=== PATIENT | male | born 1945 | race Caucasian/White ===

== ENCOUNTER → 2019-08-05 08:32 | Outpatient (BNVA) | payer MEDICARE, OTHER, SELFPAY | PROVIDERS: Family Provider Family Medicine; PCP Family Medicine; Visit Provider Urology | DX: N52.9 Male erectile dysfunction, unspecified (principal); Z12.5 Encounter for screening for malignant neoplasm of prostate | CPT/HCPCS: 81001 ==

== ENCOUNTER → 2020-08-03 08:22 | Outpatient (BNVA) | payer MEDICARE, OTHER, SELFPAY | PROVIDERS: Family Provider Family Medicine; PCP Family Medicine; Visit Provider Urology | DX: R97.20 Elevated prostate specific antigen [PSA] (principal); N40.0 Benign prostatic hyperplasia without lower urinary tract symptoms; N52.9 Male erectile dysfunction, unspecified; Z12.5 Encounter for screening for malignant neoplasm of prostate; K40.90 Unilateral inguinal hernia, without obstruction or gangrene, not specified as recurrent | CPT/HCPCS: 81003; 84153 ==

== ENCOUNTER → 2021-04-26 11:25 | Outpatient (BNVA) | payer MEDICARE, OTHER, SELFPAY | PROVIDERS: Family Provider Family Medicine; PCP Family Medicine; Visit Provider Nurse Practitioner Family | DX: N40.1 Benign prostatic hyperplasia with lower urinary tract symptoms (principal); R31.9 Hematuria, unspecified | CPT/HCPCS: 81003; 87086; 88112 ==

== ENCOUNTER 2021-05-23 16:22 | Emergency (ER) | payer MEDICARE, OTHER, SELFPAY ==
[2021-05-23 16:37] VITALS: BP 178/83; PULSE 78; RESP 18; TEMP 36.6; O2SAT 98; BMI 24.7
--- NOTE | 2021-05-23 18:50 | W.ED.GENADLT ---
HPI - General Adult General: Chief complaint: General Medical Stated complaint: HTN Time Seen by Provider: 05/23/21 18:47 History of Present Illness: HPI narrative: Patient is a 75-year-old male comes to the ED with elevated blood pressure. Patient says for the past several days his blood pressure continues to go up. He said at his doctor's office today his blood pressure was 160/90. He denies any current symptoms such as chest pain, headache, diaphoresis, nausea/vomiting, neuro symptoms. He currently takes amlodipine and doxazosin for his blood pressure. He was on hydrochlorothiazide, but his manager [facility] took him off medication since patient did not like taking it and they are considering putting him on a different medication besides hydrochlorothiazide. He was told to contact his manager hotel about blood pressure medications if his blood pressure starts elevating. Associated symptoms: Deny chest pain, dyspnea, headache(s), nausea, rash, palpitations or vomiting Review of Systems Const: Denies: fever(s), chills or fatigue Eyes: Denies: change in vision or eye discomfort ENMT: Denies: throat pain, odynophagia, nasal discharge or nasal congestion Card: Denies: chest pain, palpitations, edema, swelling of feet/ankles, dyspnea on exertion or orthopnea Resp: Denies: dyspnea, productive cough or non-productive cough GI: Denies: abdominal pain, nausea, vomiting, diarrhea, constipation or hematochezia : Denies: flank pain, difficulty urinating, dysuria or hematuria Musc: Denies: neck pain, back pain or extremity swelling Skin/Breast: Denies: rash or new lesions Neuro: Denies: headache(s), numbness in extremities or weakness in extremities Psych: Reports: anxiety (Patient said he is very anxious about his blood pressure) PFS ED PFSH: Medical History BPH loc w urin obs/LUTS Gross hematuria H/O mumps orchitis Left inguinal hernia Male erectile dysfunction Penile pain Prostate cancer screening Surgical History H/O cervical spine surgery History of back surgery S/P hernia surgery S/P surgical removal of pilonidal cyst S/P tonsillectomy Family History Mother , 64 Cancer Father , 51 CAD (coronary artery disease) Social History Alcohol intake: never Marital status: Current occupational status: retired History of recent travel: No Physical Exam Const: COMMON NORMALS: no acute distress, patient oriented x3, healthy appearing and alert GENERAL APPEARANCE: cooperative and anxious (Patient appears very anxious about his blood pressure) HENMT: COMMON NORMALS: normocephalic HEAD & SCALP: normocephalic MOUTH: Normal oral and palatal mucosa present THROAT: posterior oropharynx normal and uvula midline Eye: COMMON NORMALS: Equal, round and reactive pupils present and conjunctivae normal CONJUNCTIVA: Yes conjunctivae normal PUPIL: Yes Equal, round and reactive pupils present Neck/C-Spine: COMMON NORMALS: supple GENERAL: Yes normal visual inspection Resp: COMMON NORMALS: normal respiratory effort, No retractions, No use of accessory muscles and clear to auscultation bilaterally AUSCULTATION: clear to auscultation bilaterally Cardio: COMMON NORMALS: regular rate, regular rhythm, S1 normal heart sound present, S2 normal heart sound present, No gallops present (Cardio), No clicks present (Cardio), No murmurs present (Cardio) and Peripheral pulses 2+ throughout RATE: regular rate RHYTHM: regular rhythm HEART SOUNDS: S1 normal heart sound present and S2 normal heart sound present PERIPHERAL PULSES: Peripheral pulses 2+ throughout GI: COMMON NORMALS: Normal to inspection, nondistended, normoactive bowel sounds present, Soft to palpation, non-tender and no masses PALPATION: Yes Soft to palpation : COMMON NORMALS: Yes no CVA tenderness BLADDER/KIDNEY EXAM: Yes no CVA tenderness Back/Pelvis: COMMON NORMALS: no CVA tenderness Extremity: COMMON NORMALS: normal to inspection Neuro: COMMON NORMALS: patient oriented x3 and moves all extremities SENSORIUM/ORIENTATION: Yes alert Skin: GENERAL SKIN EXAM: dry skin Course Vital Signs: Vital signs: Vital Signs Temperature 97.8 F 05/23/21 16:37 Pulse Rate 78 05/23/21 16:37 Respiratory Rate 18 05/23/21 16:37 Blood Pressure 184/77 05/23/21 19:03 Pulse Oximetry 98 05/23/21 16:37 MDM - General Adult MDM Narrative: Medical decision making narrative: Patient is a 75-year-old male comes to the ED with elevated blood pressures. He has no other symptoms and patient appears very concerned and worried about his elevated blood pressure. He currently takes amlodipine and doxazosin to help with blood pressure. Blood pressure 184/77 here in the ED. Rest of vitals are stable. Exam is benign. Patient was given a dose of clonidine while here in the ED and discharged home. He was told to contact Dr. Dos Santos his PCP tomorrow to discuss further blood pressure medication management. Return to ED precautions given. Patient understood and agree with plan. Discharge Plan Discharge Patient Disposition: Home Clinical Impression: Hypertension Qualifiers: Hypertension type: unspecified Qualified Code(s): I10 - Essential (primary) hypertension Condition: Stable Prescriptions: No Action clopidogrel [Plavix] 75 mg tablet 75 mg PO DAILY RF: 0 levothyroxine 150 mcg capsule 150 mcg PO DAILY RF: 0 amlodipine 10 mg tablet 10 mg PO DAILY RF: 0 doxazosin 8 mg tablet 8 mg PO DAILY RF: 0 pravastatin 20 mg tablet 20 mg PO DAILY RF: 0 finasteride 5 mg tablet 5 mg PO DAILY RF: 0 omega-3 fatty acids [Fish Oil Concentrate] 1,000 mg capsule 1,000 mg PO DAILY RF: 0 Centrum Silver 0.4-300-250 mg-mcg-mcg tablet 1 tab PO DAILY RF: 0 aspirin [Adult Low Dose Aspirin] 81 mg tablet,delayed release (DR/EC) 81 mg PO DAILY RF: 0 vitamin B complex [B Complex-Vitamin B12] Tablet 1 tab PO DAILY RF: 0 Discharge Orders: Discharge ED (Routine); Ordered 05/23/21 Ordered By: Yusuf Peacock Referrals: Zeeshan Dos Santos MD [Primary Care Provider] - Discharge Diet: Regular Discharge Activity: Increase activity as tolerated Patient Instructions: Hypertension (ED) Activity Restrictions/Additional Instructions: Follow-up with medical provider as directed. Follow-up with your PCP tomorrow to discuss hypertension medication management. Continue taking home medications as prescribed. Recheck your blood pressures before you go to bed tonight. If you are having any symptoms and your systolic blood pressures above 190 or diastolic above 110, you can take your hydrochlorothiazide and come back to the ED if you are having any symptoms or continue having elevated blood pressures. Return to the ER or your medical provider if condition worsens. Please read and understand discharge instructions. Thank you for choosing [facility] for your healthcare needs today. Please realize this is an emergency room and that we are providing you with a medical screening exam and this may not be complete and all inclusive of all the testing and or work up that you may need to determine your ailment or severity of your illness. It is very important that you follow up as instructed or that you return to the Emergency Department should you have concerns or if your condition changes or worsens in any way. 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
[2021-05-23 19:03] VITALS: BP 184/77
[2021-05-23] MEDS: cloNIDine 0.1 mg Tablet PO (19:03)
== END 2021-05-23 19:10 | disposition home or self-care (01) ==
PROVIDERS: Emergency Provider Physician Assistant; PCP Family Medicine
DX: I10 Essential (primary) hypertension (principal); Z79.82 Long term (current) use of aspirin; Z79.02 Long term (current) use of antithrombotics/antiplatelets
CPT/HCPCS: 81003; 99283

== ENCOUNTER 2021-06-21 10:33 | Outpatient (CLI) | payer MEDICARE, OTHER, SELFPAY ==
--- NOTE | 2021-06-21 10:49 | CT_ITS ---
WS: [id number] CT ABDOMEN PELVIS TECHNIQUE: Noncontrast CT of the abdomen and contrast-enhanced CT of the abdomen and pelvis with jamie nal and sagittal reformatted images. CLINICAL INFORMATION: GROSS HEMATURIA COMPARISON: Outside noncontrast CT abdomen and pelvis [facility] May 09 1 DLP: 1016.[address] scans at [facility] use at least one of these dose optimization techniques: automated e xposure control; mA and/or kV adjustment per patient size (includes targeted exams where dose is matc hed to clinical indication); or iterative reconstruction. FINDINGS: Lung bases are well aerated. Slight bibasilar atelectasis. Mild diffuse fatty infiltration of the jerald er. Normal portal vein and splenic vein. A few incidental hepatic cysts.Tiny noncalcified nodule in t he right middle lobe measuring 2 mm. Splenic granulomas. Small esophageal hiatal hernia. Adrenal glands are normal. Normal right renal par enchymal enhancement. No hydronephrosis in right kidney. Heterogeneous enhancing intraparenchymal mas s in the upper pole left kidney most consistent with neoplasm measuring approximately 3.9 x 5.3 cm. A ssociated central low attenuation change or necrosis. Obstruction of some of the mid and upper pole c alyces. Involvement of the left renal pelvis. Left adrenal gland appears normal. Left renal vein appe ars patent. Additional enhancing soft tissue involving the left renal pelvis extending into the proxi mal ureter suspicious for tumor invasion. Less likely this represents thrombus. Soft tissue filling t he renal pelvis results in partial renal obstruction with narrowing at the UPJ. Evidence of emptying on the delayed imaging. Right ureter empties normally. Enlarged left periaortic lymph nodes suspicious for metastatic disease measuring up to 11 mm. Celiac and SMA are patent. Mild induration in the surrounding perinephric fat suspicious for lymphovascular invasion. No pelvic or inguinal lymphadenopathy. Normal caliber abdominal aorta. Aortic calcification. Enlarged calcified prostate with heterogeneous enhancement measuring 5.1 CM. Correlation PSA. Prostate calcification. Evidence of mild bladder outle t obstruction. CT/CT abdomen pelvis wo/w [id number] IMPRESSION: 1. Heterogeneous enhancing mass upper pole left kidney with central necrosis m ost compatible with renal neoplasm. Associated obstruction of the upper pole ca lyces. Suspected neoplasm measures 3.9 x 5.3 CM. 2. Associated enhancing soft tissue extending into the renal pelvis and left U PJ with narrowing of the left ureter compatible with tumor invasion. Less likel y this represents thrombus. 3. Induration in the surrounding perinephritic fat. Left Adrenal gland is norm al. Left renal vein is patent. 4. Enlarged left periaortic lymph nodes suspicious for metastatic disease. 5. Partial obstruction of the left ureter due to the left renal pelvic mass wi th partial excretion on the delayed imaging. 6. No hydronephrosis in right kidney. Normal right renal parenchymal enhanceme nt. Tiny right renal cyst. 7. Enlarged prostate measuring 5.1 CM. Recommend correlation PSA. 8. Tiny noncalcified right middle lobe 2 mm nodule.
[2021-06-21 12:05] LABS: Blood Urea Nitrogen 12 mg/dL (8-23)
== END 2021-06-21 10:34 | disposition home or self-care (01) ==
LOC: RAD 10:45
PROVIDERS: PCP Family Medicine; Visit Provider Urology
DX: R31.0 Gross hematuria (principal); N28.89 Other specified disorders of kidney and ureter; N28.1 Cyst of kidney, acquired; N40.0 Benign prostatic hyperplasia without lower urinary tract symptoms; R91.1 Solitary pulmonary nodule
CPT/HCPCS: 74178; 81003; 82565; 84520; 87635; Q9967

== ENCOUNTER → 2021-06-22 16:08 | Outpatient (BNVA) | payer MEDICARE, OTHER, SELFPAY | PROVIDERS: PCP Family Medicine; Visit Provider Urology | DX: R31.0 Gross hematuria (principal); N28.89 Other specified disorders of kidney and ureter; C65.9 Malignant neoplasm of unspecified renal pelvis | CPT/HCPCS: 87635 ==

== ENCOUNTER 2021-06-25 09:00 | Day surgery (SDC) | payer MEDICARE, OTHER, SELFPAY ==
[2021-06-22 14:07] VITALS: BMI 24.5
--- NOTE | 2021-06-22 14:10 | ECG_ITS ---
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
--- NOTE | 2021-06-22 15:39 | ANES.PREANE2 ---
Pre-Anesthetic Assessment Height/Weight: Height 1.78 m Weight 77.564 kg Operation Date: 06/25/21 10:35 Proposed Procedures p Cystoscopy 25376 mod 26/23284/(Not Applicable) - John Alvarado MD s Retrograde Pyelogram(Left) - MD jason Estrada Ureteroscopy with biopsy(Left) - John Alvarado MD Was Beta Nicci taken within 24 hours: N/A Was Clonidine taken within 24 hours: N/A Social No alcohol and No tobacco Exam alert, oriented x 3, clear to auscultation bilaterally and regular rate & rhythm Airway Submandibular: within normal limits Cervical ROM: within normal limits Mallampati: Class I Dentition: chipped History/ROS No significant history except as noted Pulmonary None reported CV/HEM Coronary Artery Disease (Coronary artery stent placed January 2021 ) METS > 4 Erectile dysfunction Hematuria Hepatic None reported GI Gastroesophageal Reflux Disease (Occasional reflux on empty stomach ) Metabolic None reported Musc/skel Osteoarthritis/DJD Neuropsych None reported Anesthetic Plan ASA status: 3 (75 year old male with coronary artery disease and recent stenting ) Anesthesia: Anesthesia Evaluation and General Risk of > 500 ml blood loss (7ml/kg in children): No Medications/Allergies Home Medications Medication Instructions Recorded Confirmed Last Taken Type amlodipine 10 mg tablet 10 mg PO DAILY 08/05/19 06/22/21 Unknown History doxazosin 8 mg tablet 8 mg PO DAILY 08/05/19 06/22/21 Unknown History finasteride 5 mg tablet 5 mg PO DAILY 08/05/19 06/22/21 Unknown History levothyroxine 150 mcg capsule 150 mcg PO DAILY 08/05/19 06/22/21 Unknown History yughcggx-uvm-xmiqm acid 0.4 1 tab PO DAILY 08/05/19 06/22/21 Unknown History mg-lycopene 300 mcg-lutein 250 mcg tablet (Centrum Silver) omega-3 fatty acids 1,000 mg 1,000 mg PO DAILY 08/05/19 06/22/21 Unknown History capsule (Fish Oil Concentrate) pravastatin 20 mg tablet 20 mg PO DAILY 08/05/19 06/22/21 Unknown History aspirin 81 mg tablet,delayed 81 mg PO DAILY 04/26/21 06/22/21 Unknown History release (Adult Low Dose Aspirin) vitamin B complex (B 1 tab PO DAILY 04/26/21 06/22/21 Unknown History Complex-Vitamin B12) clopidogrel 75 mg tablet (Plavix) 75 mg PO DAILY 05/23/21 06/22/21 06/21/21 History cholecalciferol (vitamin D3) 10 10 mcg PO DAILY 06/21/21 06/22/21 Unknown History mcg (400 unit) capsule docusate sodium 100 mg capsule 100 mg PO DAILY 06/21/21 06/22/21 Unknown History (Stool Softener) losartan 50 mg-hydrochlorothiazide 1 tab PO DAILY 06/21/21 06/22/21 Unknown History 12.5 mg tablet magnesium 250 mg tablet 400 mg PO DAILY 06/21/21 06/22/21 Unknown History polyethylene glycol 3350 17 17 g PO PRN 06/21/21 06/22/21 Unknown History gram/dose oral powder (Miralax) psyllium husk 0.52 gram capsule 0.52 g PO PRN 06/21/21 06/22/21 Unknown History (Metamucil) zinc 50 mg tablet 50 mg PO DAILY 06/21/21 06/22/21 Unknown History Allergies Allergy/AdvReac Type Severity Reaction Status Date / Time amoxicillin Allergy NA Verified 06/21/21 14:20 Sulfa (Sulfonamide Allergy NA Verified 06/21/21 14:20 Antibiotics) PFSH Anesthesia Medical History BPH loc w urin obs/LUTS Gross hematuria H/O mumps orchitis Left inguinal hernia Male erectile dysfunction Penile pain Prostate cancer screening Surgical History H/O cervical spine surgery History of back surgery S/P hernia surgery S/P surgical removal of pilonidal cyst S/P tonsillectomy Family History Mother , 64 Cancer Father , 51 CAD (coronary artery disease) Social History Smoking and tobacco status: former smoker Alcohol intake: never Marital status: Current occupational status: retired History of recent travel: No Data Anesthesia Cardiac Studies: No Data to Display
[2021-06-25] VITALS (7 sets, daily range): BP systolic 107–133; BP diastolic 56–66; PULSE 57–66; RESP 10–20; TEMP 36.1–36.2; O2SAT 96–100
--- NOTE | 2021-06-25 | SCC_ITS ---
Procedure done: 1. Cystoscopy with left retrograde ureteropyelogram 2. Left flexible ureterorenoscopy 3. Left ureteroscopic renal pelvic mass biopsy 43.9 seconds of fluoroscopic guidance, for a cumulative dose of 8.0 mGy, was provided to Dr. Alvarado by the radiology department. C-arm images of the abdomen were saved for the patient's permanent record. [facility]
--- NOTE | 2021-06-25 09:03 | SC_ITS ---
WS: [id number] INTRAOPERATIVE TECHNIQUE: 3 Spot fluoroscopic images for intraoperative purposes. FLUOROSCOPY TIME: 43.9 seconds CLINICAL INFORMATION: Renal pelvic mass COMPARISON: CT June 21, 2021 FINDINGS: Left fluoroscopy. Contrast fills the left ureter and left lower calyx. Narrowing of the ureter at the UPJ with poor filling of the remaining calyces. This corresponds to the invasive mass seen on the pr ior CT SC/C-arm [place] for Urology IMPRESSION: Images obtained for intraoperative purposes.
--- NOTE | 2021-06-25 09:48 | P.ANESUD_ITS ---
Pre-Anesthetic Update Pre-Anesthetic Assessment: Date of Surgery/Procedure: 06/25/21 Preop Selam gnosis: Left renal pelvic and left upper pole mass Proposed Procedure: Operation Date: 06/25/21 10:35 Proposed Procedures p Cystoscopy 45302 mod 26/73530/(Not Applicable) - John Alvarado MD s Retrograde Pyelogram(Left) - MD jason Estrada Ureteroscopy with biopsy(Left) - John Alvarado MD Any changes to Pre-Anesthetic Assessment?: Yes Changes from Pre-Anesthetic Assessment: Patient did take ASA 81 mg this AM. holding plavix Last Intake: Intake Last Liquid Date 06/24/21 Last Liquid Time 20:00 Last Solid Date 06/24/21 Last Solid Time 20:00 Labs Last 48hrs: > 8 hrs Vitals: Temperature 97.2 F L 06/25/21 09:34 Temperature Source Temporal Artery S can 06/25/21 09:34 Pulse Rate 66 06/25/21 09:34 Pulse Rhythm 06/25/21 09:34 Pulse Strength 3+ Normal 06/25/21 09:34 Respiratory Rate 18 06/25/21 09:34 Blood Pressure 133/66 06/25/21 09:34 Blood Pressure Geni n 88 06/25/21 09:34 Pulse Oximetry 100 06/25/21 09:34 Oxygen Delivery Me thod 06/25/21 09:34 Exam: Pre-Anes Outpt Exam: alert, oriented x 3, clear to auscultation bilaterally and regular rate & rhythm Cardiac Studies: No Data to Display
[2021-06-25] MEDS: sodium chloride 0.9% 1,000 ML 30 ML IV (10:05)
--- NOTE | 2021-06-25 10:08 | W.PM.OPSUD ---
Surgery/Procedure H&P Update DATE OF PROCEDURE: June 25, 2021 DATE H&P PERFORMED: 06/20/21 CHANGES TO PREVIOUS DOCUMENTATION: None other than having held his Plavix since 06/21/2021 PREOP DIAGNOSIS: Left renal pelvic and left upper pole mass PRIMARY INDICATION FOR PROCEDURE: Left renal mass, renal pelvic mass suspicious for transitional cell carcinoma. Possible regional lymphadenopathy PLANNED PROCEDURE: Operation Date: 06/25/21 10:35 Proposed Procedures p Cystoscopy 57733 mod 65383/(Not Applicable) - John Alvarado MD s Retrograde Pyelogram(Left) - John Alvarado MD s Ureteroscopy with biopsy(Left) - John Alvarado MD
--- NOTE | 2021-06-25 10:10 | PM.OP ---
Operative Report Date of procedure: June 25, 2021 Pre-op diagnosis: Preop Diagnosis Left renal pelvic and left upper pole mass Post-op diagnosis: Left renal pelvic and left upper pole mass Procedure done: 1. Cystoscopy with left retrograde ureteropyelogram 2. Left flexible ureterorenoscopy 3. Left ureteroscopic renal pelvic mass biopsy Implants: none Specimens removed/disposition: Single biopsy of the left renal pelvis mass. Tiny specimen. Pathology: Single biopsy of the left renal pelvis mass. Tiny specimen. 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 Farmer is a delightful 75-year-old well-preserved white male recently evaluated for gross hematuria and was found to have on follow-up contrasted CT scan what appeared to be a left renal pelvic mass with invasive left upper pole mass and at least 2 regional lymph nodes that were enlarged. Working diagnosis was transitional cell carcinoma. He is admitted now for ureteroscopic evaluation and biopsy. There is no evidence of bladder disease on outpatient clinic cystoscopy Procedure: In preoperative evaluation examination and obtaining of informed consent he was taken to the operating suite on 06/25/2021 where general anesthesia was administered without difficulty after appropriate timeout was performed, SCDs confirmed to be functioning, preoperative antibiotics administered, beta-alicia protocol confirmed. Prepped and draped in the usual sterile fashion in dorsolithotomy position paying careful attention to avoiding pressure points. 21 Belarusian cystoscope with 30 degree lens was introduced into the urethra meatus and advanced into the bladder to videoscopy. An 8 Belarusian cone-tip catheter was intubated into the left ureteral orifice for left retrograde ureteropyelogram. Findings: The ureter appeared normal throughout its course. Normal caliber as well. There is a filling defect with minimal contrast squeezed proximal to it in the renal pelvis. The lower pole calyces were dilated. There was no filling of the upper pole at all. A flexible tip guidewire was then advanced up the left ureter into the area of the renal pelvis and a 7 [place]ian flexible ureteroscope was advanced over the guidewire easily up the left ureter to the renal pelvis. Ureteroscopic biopsy forceps were utilized to take a sample what clearly appeared to be transitional cell carcinoma with nodular type appearance and superficial papillary changes. Photodocumentation was obtained. There was minimal bleeding. No stent. He tolerated the procedure well without complications and was awakened in the operating room and returned to the recovery room in stable condition. PLANS: 1. Anticipate discharge from outpatient surgery today 2. Consults are currently pending with oncology and urologic surgery for minimally invasive options specifically
[2021-06-25 10:46] LABS: Anion Gap 12.6 (5-19); Blood Urea Nitrogen 12 mg/dL (8-23); Calcium 7.8 mg/dL (8.5-10.5); Carbon Dioxide 26 mmol/L (22-29); Chloride 100 mmol/L (98-107); Glucose 86 mg/dL (65-115); Osmolality Calculated 279 mOsm/kg (285-295); Potassium 3.6 mmol/L (3.5-5.1); Sodium 135 mmol/L (136-145)
[2021-06-25] MEDS: levofloxacin-dextrose 5 % 500 MG/100 ML PREMIX 100 MG IV (10:52)
[2021-06-25] MEDS: iohexol 300 mg/mL 50 mL Btl (OR ONLY) XX (11:26)
== END 2021-06-25 13:01 | disposition home or self-care (01) ==
PROVIDERS: Anesthesiology; PCP Family Medicine; Visit Provider Urology
PROC: 0TJB8ZZ Inspection of Bladder, Via Natural or Artificial Opening Endoscopic (ICD-10-PCS; CPT 52000; principal; 2021-06-25 10:25)
PROC: (CPT 74420; 2021-06-25 10:25)
PROC: 0TJ98ZZ Inspection of Ureter, Via Natural or Artificial Opening Endoscopic (ICD-10-PCS; CPT 52351; 2021-06-25 10:25)
DX: C64.2 Malignant neoplasm of left kidney, except renal pelvis (principal); Z79.02 Long term (current) use of antithrombotics/antiplatelets; Z79.82 Long term (current) use of aspirin; N40.1 Benign prostatic hyperplasia with lower urinary tract symptoms; N13.8 Other obstructive and reflux uropathy; Z87.891 Personal history of nicotine dependence
CPT/HCPCS: 52354; 76000; 80048; 88309; 93005; J1100; J1956; J2405; J2704; J3010; J3490; J7030

== ENCOUNTER 2021-09-26 14:41 | Emergency (ER) | payer MEDICARE, OTHER, SELFPAY ==
[2021-09-26 14:50] VITALS: BP 174/79; PULSE 63; RESP 18; TEMP 36.4; O2SAT 99
--- NOTE | 2021-09-26 14:51 | XRR_ITS ---
PROCEDURE INFORMATION: Exam: XR Chest Exam date and time: 09/26/2021 3:23 PM Age: 75 years old Clinical indication: Pain; Angina pectoris; Additional info: Chest pain TECHNIQUE: Imaging protocol: XR of the chest. Views: 1 view. COMPARISON: CT abdomen pelvis wo/w [id number] 06/21/2021 12:19 PM FINDINGS: Lungs: No consolidation. Pleural spaces: Unremarkable. No pleural effusion. No pneumothorax. Heart/Mediastinum: No cardiomegaly. Bones/joints: No acute findings. XR/XR chest 1V portable [id number] IMPRESSION: No acute findings.
--- NOTE | 2021-09-26 14:51 | ECG_ITS ---
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 Measurements Intervals [place] Rate: 59 P: 63 AR: 183 QRS: 14 QRSD: 96 T: 58 QT: 407 QTc: 405 Interpretive Statements SINUS BRADYCARDIA Compared to ECG 06/22/2021 14:33:11 Sinus rhythm no longer present Electronically Signed On 09-26-2021 19:48:39 CDT by Leonor Boothe M.D. [id number]
[2021-09-26 15:16] LABS: Basophils % 0.8 %; Eosinophils # 0.1 10^3/uL (0.0-0.8); Eosinophils % 2.4 %; Hematocrit 31.2 % (42.0-52.0); Hemoglobin 10.4 g/dL (11.7-16.6); Lymphocytes # 1.6 10^3/uL (0.8-4.8); Lymphocytes % 31.9 %; Mean Corpuscular HGB Conc 33.3 g/dL (30.0-36.0); Mean Corpuscular Hemoglobin 27.2 pg (28.0-34.0); Mean Corpuscular Volume 81.5 fl (80-94); Mean Platelet Volume 8.6 fL (7.4-10.4); Monocytes # 0.4 10^3/uL (0.2-0.9); Monocytes % 8.2 %; Neutrophils # 2.82 10^3/uL (1.8-7.7); Neutrophils % 56.5 %; Nucleated Red Blood Cells % 0 %; Platelet Count 280 10^3/cmm (130-400); Red Blood Count 3.83 10^6/uL (4.1-5.3)
[2021-09-26 15:43] LABS: Alanine Aminotransferase 28 U/L (0-41); Albumin Level 4.4 g/dL (3.5-5.2); Alkaline Phosphatase 75 IU/L (40-130); Anion Gap 16.4 (5-19); Aspartate Amino Transferase 38 U/L (0-40); Blood Urea Nitrogen 18 mg/dL (8-23); Calcium 9.2 mg/dL (8.5-10.5); Carbon Dioxide 23 mmol/L (22-29); Chloride 89 mmol/L (98-107); Globulin 2.1 g/dL (1.3-4.6); Glucose 105 mg/dL (65-115); Osmolality Calculated 260 mOsm/kg (285-295); Potassium 4.4 mmol/L (3.5-5.1); Sodium 124 mmol/L (136-145); Total Bilirubin 0.2 mg/dL (0.15-1.2); Total Protein 6.5 g/dL (6.6-8.7)
--- NOTE | 2021-09-26 15:43 | ED_ITS ---
Documented by User: Gurpreet Prado DO 09/27/21 07:57 HPI - General Adult General: Chief complaint: General Medical Stated complaint: Pain in left/right shoulder pain, CP Time Seen by Provider: 09/26/21 15:41 Source: patient Mode of arrival: ambulatory Limitations: no limitations History of Present Illness: 75-year-old male presents emergency room with complaint of left shoulder pain and some chest pain little bit of pain in his right shoulder as well. This began yesterday. He has a known history of coronary artery disease had a single stent sounds like at that LAD stent placed in January 2021. He is relatively vague about the chest discomfort he describes an aching heavy sensation he does not notice anything that makes it better or worse. He also has a known renal cell CA and previously had a left nephrectomy and is currently being treated with chemotherapy from [facility] in [place]. He states earlier this week he had labs done and was hyponatremic. Onset (ago): day(s) Location: chest Radiation: other (Right and left shoulders) Severity: mild Quality: other (Tightness) Pain Consistency: constant Relieving factors: none Exacerbating factors: none Associated symptoms: Reports chest pain; Deny confusion, cough, diaphoresis, decreased appetite, dyspnea, fevers/chills, headache(s), malaise, nausea, rash, palpitations, seizures, short of breath, syncope, vomiting or weakness Treatments prior to arrival: none Review of Systems Const: Denies: fever(s), chills, body aches, malaise or diaphoresis ENMT: Denies: throat pain, ear or mastoid pain, nasal discharge or nasal congestion Card: Reports: chest pain; Denies: palpitations or syncope Resp: Denies: dyspnea GI: Denies: abdominal pain, nausea or vomiting : Denies: flank pain, difficulty urinating, dysuria, urinary frequency or urinary urgency Skin/Breast: Denies: rash Neuro: Denies: headache(s), numbness in extremities, weakness in extremities or confusion PFSH ED PFSH: Medical History BPH loc w urin obs/LUTS Gross hematuria H/O mumps orchitis Left inguinal hernia Left renal mass Male erectile dysfunction Penile pain Prostate cancer screening Surgical History H/O cervical spine surgery History of back surgery S/P hernia surgery S/P surgical removal of pilonidal cyst S/P tonsillectomy Family History Mother , 64 Cancer Father , 51 CAD (coronary artery disease) Social History Smoking and tobacco status: former smoker Alcohol intake: never Marital status: Current occupational status: retired History of recent travel: No Physical Exam Const: GENERAL APPEARANCE: cooperative and comfortable ORIENTATIO N/CONSCIOUSNESS: Yes awake, Yes oriented to person, Yes oriented to place and Yes oriented to time HENMT: COMMON NORMALS: normocephalic, atraumatic and hearing grossly normal bilaterally HEAD & SCALP: normocephalic and atraumatic Neck/C-Spine: COMMON NORMALS: no JVD Resp: COMMON NORMALS: normal respiratory effort, No retractions, No use of accessory muscles and clear to auscultation bilaterally AUSCULTATION: clear to auscultation bilaterally Cardio: COMMON NORMALS: no JVD, regular rate, regular rhythm and No murmurs present (Cardio) RATE: regular rate RHYTHM: regular rhythm GI: COMMON NORMALS: Soft to palpation and No hepatosplenomegaly present AUSCULTATION: Yes normoactive bowel sounds PALPATION: Yes Soft to palpation, No Tenderness to palpation present (GI), No Guarding due to palpation present (GI) and Yes No hepatosplenomegaly present Extremity: COMMON NORMALS: normal to inspection, capillary refill normal, no clubbing, cyanosis or edema, no calf tenderness and no pedal edema Neuro: SENSORIUM/ORIENTATION: Yes oriented to person, Yes oriented to place and Yes oriented to time Skin: COMMON NORMALS: no rashes or lesions noted GENERAL SKIN EXAM: no rashes or lesions noted Course Vital Signs: Vital signs: Vital Signs Temperature 97.5 F L 09/26/21 14:50 Pulse Rate 67 09/26/21 19:09 Respiratory Rate 18 09/26/21 14:50 Blood Pressure 165/84 09/26/21 19:09 Pulse Oximetry 99 09/26/21 19:09 [facility] - General Adult Medical Decision Making Care signed out to Dr. Burkett at change of shift. See final notes for diagnosis and disposition. Patient presents for chest pain and hypertension he also does have hyponatremia that has been going on is not acute he has no change in mentation his troponins here are negative he is to follow-up with his PCP next week he is to take a log of his blood pressure morning noon and night. He is to have his sodium level rechecked as well he has no signs of acute coronary syndrome or pulmonary em bolism he is stable for discharge return if worsening. Medical Records I reviewed the patient's medical records. Lab Data I reviewed the patient's lab results. : 09/26/21 15:03 09/26/21 15:03 Radiology Impressions Chest X-Ray 09/26/21 14:51 IMPRESSION: No acute findings. Laboratory Results WBC 5.0 10^3/uL (4.0-10.0) 09/26/21 15:03 RBC 3.83 10^6/uL (4.1-5.3) L 09/26/21 15:03 Hgb 10.4 g/dL (11.7-16.6) L 09/26/21 15:03 Hct 31.2 % (42.0-52.0) L 09/26/21 15:03 MCV 81.5 fl (80-94) 09/26/21 15:03 MCH 27.2 pg (28.0-34.0) L 09/26/21 15:03 MCHC 33.3 g/dL (30.0-36.0) 09/26/21 15:03 RDW 15.0 % (12.1-15.1) 09/26/21 15:03 Plt Count 280 10^3/cmm (130-400) 09/26/21 15:03 MPV 8.6 fL (7.4-10.4) 09/26/21 15:03 Neut % (Auto) 56.5 % 09/26/21 15:03 Lymph % (Auto) 31.9 % 09/26/21 15:03 [place] % (Auto) 8.2 % 09/26/21 15:03 Eos % (Auto) 2.4 % 09/26/21 15:03 Baso % (Auto) 0.8 % 09/26/21 15:03 Neut # (Auto) 2.82 10^3/uL (1.8-7.7) 09/26/21 15:03 Lymph # (Auto) 1.6 10^3/uL (0.8-4.8) 09/26/21 15:03 [place] # (Auto) 0.4 10^3/uL (0.2-0.9) 09/26/21 15:03 Eos # (Auto) 0.1 10^3/uL (0.0-0.8) 09/26/21 15:03 Baso # (Auto) 0.0 10^3/uL (0.0-0.1) 09/26/21 15:03 Nucleated RBC % (auto) 0 % 09/26/21 15:03 Nucleated RBCs # 0.0 /100WBC 09/26/21 15:03 Sodium 124 mmol/L (136-145) L 09/26/21 15:03 Potassium 4.4 mmol/L (3.5-5.1) 09/26/21 15:03 Chloride 89 mmol/L (98-107) L 09/26/21 15:03 Carbon Dioxide 23 mmol/L (22-29) 09/26/21 15:03 Anion Gap 16.4 (5-19) 09/26/21 15:03 BUN 18 mg/dL (8-23) 09/26/21 15:03 Creatinine 0.8 mg/dL (0.7-1.2) 09/26/21 15:03 GFR Calculation Not Reportable 09/26/21 15:03 Glucose 105 mg/dL (65-115) 09/26/21 15:03 Calculated Osmolality 260 mOsm/kg (285-295) L 09/26/21 15:03 Calcium 9.2 mg/dL (8.5-10.5) 09/26/21 15:03 Total Bilirubin 0.2 mg/dL (0.15-1.2) 09/26/21 15:03 AST 38 U/L (0-40) 09/26/21 15:03 ALT 28 U/L (0-41) 09/26/21 15:03 Alkaline Phosphatase 75 IU/L (40-130) 09/26/21 15:03 Troponin T Baseline 13 ng/L (0-15) 09/26/21 15:20 Troponin T 120 Minute 12.45 ng/L (0-15) 09/26/21 17:43 Delta Troponin T -0.15 ABS# (0-10) L 09/26/21 17:43 Total Protein 6.5 g/dL (6.6-8.7) L 09/26/21 15:03 Albumin 4.4 g/dL (3.5-5.2) 09/26/21 15:03 Globulin 2.1 g/dL (1.3-4.6) 09/26/21 15:03 Discharge Plan Discharge Patient Disposition: Home Clinical Impression: Chest pain, Hypertension, Hyponatremia Condition: Stable Prescriptions: No Action clopidogrel [Plavix] 75 mg tablet 75 mg PO DAILY 0RF zinc 50 mg tablet 50 mg PO DAILY 0RF magnesium 250 mg tablet 400 mg PO DAILY 0RF cholecalciferol (vitamin D3) 10 mcg (400 unit) capsule 10 mcg PO DAILY 0RF docusate sodium [Stool Softener] 100 mg capsule 100 mg PO DAILY 0RF psyllium husk [Metamucil] 0.52 gram capsule 0.52 g PO PRN 0RF polyethylene glycol 3350 [Miralax] 17 gram/dose powder 17 g PO PRN 0RF losartan-hydrochlorothiazide 50-12.5 mg tablet 1 tab PO DAILY 0RF levothyroxine 150 mcg capsule 150 mcg PO DAILY 0RF amlodipine 10 mg tablet 10 mg PO DAILY 0RF doxazosin 8 mg tablet 8 mg PO DAILY 0RF pravastatin 20 mg tablet 20 mg PO DAILY 0RF finasteride 5 mg tablet 5 mg PO DAILY 0RF omega-3 fatty acids [Fish Oil Concentrate] 1,000 mg capsule 1,000 mg PO DAILY 0RF Centrum Silver 0.4-300-250 mg-mcg-mcg tablet 1 tab PO DAILY 0RF aspirin [Adult Low Dose Aspirin] 81 mg tablet,delayed release (DR/EC) 81 mg PO DAILY 0RF vitamin B complex [B Complex-Vitamin B12] Tablet 1 tab PO DAILY 0RF hydrocodone-acetaminophen 5-325 mg tablet 1 tab PO Q8H PRN (Reason: pain) Qty: 12 0RF Discharge Orders: Discharge ED (Routine); Ordered 09/26/21 Ordered By: Yamila Burkett Referrals: Zeeshan Dos Santos MD [Primary Care Provider] - 1-3 days Discharge Diet: Advance as tolerated Discharge Activity: Resume usual activity Patient Instructions: Chest Pain (ED), Hyponatremia (ED), Hypertension (ED) Coding Level of Care Code ED Climatology Professor for Chg Fwd Exam Comprehensive Documented by User: Yamila Burkett MD 09/26/21 19:14 HPI - General Adult General: Chief complaint: General Medical Stated complaint: Pain in left/right shoulder pain, CP Time Seen by Provider: 09/26/21 15:41 PFSH ED PFSH: Medical History BPH loc w urin obs/LUTS Gross hematuria H/O mumps orchitis Left inguinal hernia Left renal mass Male erectile dysfunction Penile pain Prostate cancer screening Surgical History H/O cervical spine surgery History of back surgery S/P hernia surgery S/P surgical removal of pilonidal cyst S/P tonsillectomy Family History Mother , 64 Cancer Father , 51 CAD (coronary artery disease) Social History Smoking and tobacco status: former smoker Alcohol intake: never Marital status: Current occupational status: retired History of recent travel: No Course Vital Signs: Vital signs: Vital Signs Temperature 97.5 F L 09/26/21 14:50 Pulse Rate 67 09/26/21 19:09 Respiratory Rate 18 09/26/21 14:50 Blood Pressure 165/84 09/26/21 19:09 Pulse Oximetry 99 09/26/21 19:09 MDM - General Adult Medical Decision Making Patient presents for chest pain and hypertension he also does have hyponatremia that has been going on is not acute he has no change in mentation his troponins here are negative he is to follow-up with his PCP next week he is to take a log of his blood pressure morning noon and night. He is to have his sodium level rechecked as well he has no signs of acute coronary syndrome or pulmonary embolism he is stable for discharge return if worsening. Lab Data : 09/26/21 15:03 09/26/21 15:03 Radiology Impressions Chest X-Ray 09/26/21 14:51 IMPRESSION: No acute findings. Laboratory Results WBC 5.0 10^3/uL (4.0-10.0) 09/26/21 15:03 RBC 3.83 10^6/uL (4.1-5.3) L 09/26/21 15:03 Hgb 10.4 g/dL (11.7-16.6) L 09/26/21 15:03 Hct 31.2 % (42.0-52.0) L 09/26/21 15:03 MCV 81.5 fl (80-94) 09/26/21 15:03 MCH 27.2 pg (28.0-34.0) L 09/26/21 15:03 MCHC 33.3 g/dL (30.0-36.0) 09/26/21 15:03 RDW 15.0 % (12.1-15.1) 09/26/21 15:03 Plt Count 280 10^3/cmm (130-400) 09/26/21 15:03 MPV 8.6 fL (7.4-10.4) 09/26/21 15:03 Neut % (Auto) 56.5 % 09/26/21 15:03 Lymph % (Auto) 31.9 % 09/26/21 15:03 [place] % (Auto) 8.2 % 09/26/21 15:03 Eos % (Auto) 2.4 % 09/26/21 15:03 Baso % (Auto) 0.8 % 09/26/21 15:03 Neut # (Auto) 2.82 10^3/uL (1.8-7.7) 09/26/21 15:03 Lymph # (Auto) 1.6 10^3/uL (0.8-4.8) 09/26/21 15:03 [place] # (Auto) 0.4 10^3/uL (0.2-0.9) 09/26/21 15:03 Eos # (Auto) 0.1 10^3/uL (0.0-0.8) 09/26/21 15:03 Baso # (Auto) 0.0 10^3/uL (0.0-0.1) 09/26/21 15:03 Nucleated RBC % (auto) 0 % 09/26/21 15:03 Nucleated RBCs # 0.0 /100WBC 09/26/21 15:03 Sodium 124 mmol/L (136-145) L 09/26/21 15:03 Potassium 4.4 mmol/L (3.5-5.1) 09/26/21 15:03 Chloride 89 mmol/L (98-107) L 09/26/21 15:03 Carbon Dioxide 23 mmol/L (22-29) 09/26/21 15:03 Anion Gap 16.4 (5-19) 09/26/21 15:03 BUN 18 mg/dL (8-23) 09/26/21 15:03 Creatinine 0.8 mg/dL (0.7-1.2) 09/26/21 15:03 GFR Calculation Not Reportable 09/26/21 15:03 Glucose 105 mg/dL (65-115) 09/26/21 15:03 Calculated Osmolality 260 mOsm/kg (285-295) L 09/26/21 15:03 Calcium 9.2 mg/dL (8.5-10.5) 09/26/21 15:03 Total Bilirubin 0.2 mg/dL (0.15-1.2) 09/26/21 15:03 AST 38 U/L (0-40) 09/26/21 15:03 ALT 28 U/L (0-41) 09/26/21 15:03 Alkaline Phosphatase 75 IU/L (40-130) 09/26/21 15:03 Troponin T Baseline 13 ng/L (0-15) 09/26/21 15:20 Troponin T 120 Minute 12.45 ng/L (0-15) 09/26/21 17:43 Delta Troponin T -0.15 ABS# (0-10) L 09/26/21 17:43 Total Protein 6.5 g/dL (6.6-8.7) L 09/26/21 15:03 Albumin 4.4 g/dL (3.5-5.2) 09/26/21 15:03 Globulin 2.1 g/dL (1.3-4.6) 09/26/21 15:03 Discharge Plan Discharge Patient Disposition: Home Clinical Impression: Chest pain, Hypertension, Hyponatremia Condition: Stable Prescriptions: No Action clopidogrel [Plavix] 75 mg tablet 75 mg PO DAILY 0RF zinc 50 mg tablet 50 mg PO DAILY 0RF magnesium 250 mg tablet 400 mg PO DAILY 0RF cholecalciferol (vitamin D3) 10 mcg (400 unit) capsule 10 mcg PO DAILY 0RF docusate sodium [Stool Softener] 100 mg capsule 100 mg PO DAILY 0RF psyllium husk [Metamucil] 0.52 gram capsule 0.52 g PO PRN 0RF polyethylene glycol 3350 [Miralax] 17 gram/dose powder 17 g PO PRN 0RF losartan-hydrochlorothiazide 50-12.5 mg tablet 1 tab PO DAILY 0RF levothyroxine 150 mcg capsule 150 mcg PO DAILY 0RF amlodipine 10 mg tablet 10 mg PO DAILY 0RF doxazosin 8 mg tablet 8 mg PO DAILY 0RF pravastatin 20 mg tablet 20 mg PO DAILY 0RF finasteride 5 mg tablet 5 mg PO DAILY 0RF omega-3 fatty acids [Fish Oil Concentrate] 1,000 mg capsule 1,000 mg PO DAILY 0RF Centrum Silver 0.4-300-250 mg-mcg-mcg tablet 1 tab PO DAILY 0RF aspirin [Adult Low Dose Aspirin] 81 mg tablet,delayed release (DR/EC) 81 mg PO DAILY 0RF vitamin B complex [B Complex-Vitamin B12] Tablet 1 tab PO DAILY 0RF hydrocodone-acetaminophen 5-325 mg tablet 1 tab PO Q8H PRN (Reason: pain) Qty: 12 0RF Discharge Orders: Discharge ED (Routine); Ordered 09/26/21 Ordered By: Yamila Burkett Referrals: Zeeshan Dos Santos MD [Primary Care Provider] - 1-3 days Discharge Diet: Advance as tolerated Discharge Activity: Resume usual activity Patient Instructions: Chest Pain (ED), Hyponatremia (ED), Hypertension (ED) Coding Level of Care Code ED Climatology Professor for Mattyg Fwd Exam Comprehensive
[2021-09-26 15:54] VITALS: BP 168/86; PULSE 67; O2SAT 100
[2021-09-26 15:55] LABS: Troponin(5th) Baseline 13 ng/L (0-15)
--- NOTE | 2021-09-26 16:51 | ECG_ITS ---
[facility] Test Date: 2021-09-26 Pat Name: Cande Farmer Department: Room: Gender: Male [employer]: : 1945 Requested By: Danielle Duenas Order Number: [id number] Winter MD: Leonor Boothe M.D. Measurements Intervals [place] Rate: 61 P: 114 MT: 183 QRS: 201 QRSD: 92 T: 152 QT: 414 QTc: 419 Interpretive Statements SINUS RHYTHM ARM LEADS REVERSED [INVERTED P AND QRS IN I] Compared to ECG 09/26/2021 14:54:51 Sinus bradycardia no longer present Electronically Signed On 09-26-2021 20:05:20 CDT by Leonor Boothe M.D. [id number]
[2021-09-26 18:15] LABS: Troponin 5 2HR 12.45 ng/L (0-15)
[2021-09-26 18:23] LABS: Troponin 5 2HR Delta -0.15 ABS# (0-10)
[2021-09-26] MEDS: sodium chloride 0.9% 1,000 ML 999 ML IV (18:49)
[2021-09-26 19:09] VITALS: BP 165/84; PULSE 67; O2SAT 99
== END 2021-09-26 19:11 | disposition home or self-care (01) ==
PROVIDERS: Physician Assistant; Emergency Provider Emergency Medicine; PCP Family Medicine
DX: R07.9 Chest pain, unspecified (principal); I10 Essential (primary) hypertension; E87.1 Hypo-osmolality and hyponatremia; Z79.82 Long term (current) use of aspirin; Z87.891 Personal history of nicotine dependence
CPT/HCPCS: 36415; 71045; 80053; 84484; 85025; 93005; 99284; J7030

== ENCOUNTER 2021-09-28 15:16 | Outpatient (CLI) | payer MEDICARE, OTHER, SELFPAY ==
[2021-09-28 16:58] LABS: Creatine Phosphokinase 626 U/L (39-308)
[2021-09-28 18:53] LABS: CKMB 17.9 ng/mL (0-10.4); CKMB Relative Index 2.8 % (0.0-5.3)
== END 2021-09-28 15:17 | disposition home or self-care (01) ==
PROVIDERS: PCP Family Medicine; Visit Provider Family Medicine
DX: E87.1 Hypo-osmolality and hyponatremia (principal)
CPT/HCPCS: 82550; 82553

== ENCOUNTER 2022-01-25 19:32 | Emergency (ER) | payer MEDICARE, OTHER, SELFPAY ==
[2022-01-25 19:40] VITALS: BP 162/88; PULSE 80; RESP 16; TEMP 36.3; O2SAT 100
--- NOTE | 2022-01-25 19:45 | ED_ITS ---
Documented by User: Jadiel Kirby MD 02/08/22 07:25 HPI - Abdominal Pain General: Chief Complaint: Abdominal Pain Stated Complaint: Dr. Dos Santos sent for abd pain Time Seen by Provider: 01/25/22 19:45 History of Present Illness: Mr. Farmer is a 76-year-old gentleman who presents to the emergency department due to abdominal discomfort associated with const ipation. He reports last bowel movement was approximately 4 days ago and has had gradually worsening abdominal cramping and fullness as well as distention. He has tried [id number] medications including MiraLAX, magnesium citrate, and others without significant relief. Intensity of symptoms has worsened and is currently moderate. Has had similar episodes in the past associated with bowel obstruction. No other specific changes in health, exacerbating, or alleviating factors identified. Onset (ago): day(s) Location: Diffuse Severity: moderate Associated Symptoms: Reports constipation and GI cramping Review of Systems General: Reports: 10 or more systems reviewed and unremarkable except in HPI and below GI: Reports: constipation and GI cramping PFSH ED PFSH: Medical History BPH loc w urin obs/LUTS Gross hematuria H/O mumps orchitis Left inguinal hernia Left renal mass Male erectile dysfunction Penile pain Prostate cancer screening Surgical History H/O cervical spine surgery History of back surgery S/P hernia surgery S/P surgical removal of pilonidal cyst S/P tonsillectomy Family History Mother , 64 Cancer Father , 51 CAD (coronary artery disease) Social History Smoking and tobacco status: former smoker Alcohol intake: never Marital status: Current occupational status: retired History of recent travel: No Physical Exam Const: COMMON NORMALS: alert GENERAL APPEARANCE: cooperative and well developed HENMT: COMMON NORMALS: normocephalic and atraumatic HEAD & SCALP: normocephalic and atraumatic Eye: COMMON NORMALS: conjunctivae normal CONJUNCTIVA: Yes conjunctivae normal SCLERA: sclerae normal Neck/C-Spine: COMMON NORMALS: supple GENERAL: Yes trachea midline Resp: COMMON NORMALS: normal respiratory effort and clear to auscultation bilaterally EFFORT & INSPECTION: Yes able to speak in complete sentences AUSCULTATION: clear to auscultation bilaterally Cardio: COMMON NORMALS: regular rate and regular rhythm RATE: regular rate RHYTHM: regular rhythm GI: COMMON NORMALS: Soft to palpation PALPATION: Yes Soft to palpation, Yes Tenderness to palpation present (GI), No Guarding due to palpation present (GI) and No Rigid due to palpation PERCUSSION: normal to percussion Extremity: GENERAL: Yes normal exam except as noted and No edema Neuro: COMMON NORMALS: moves all extremities SENSORIUM/ORIENTATION: Yes alert and No Orientation impaired Psych: COMMON NORMALS: mental status grossly normal and Normal thought process present THOUGHT PROCESS: Normal thought process present Course ED course: - Patient was seen and evaluated by me at bedside - Patient placed on cardiac monitors, IV access obtained - Initial evaluation notable for exam as above - Labs personally interpreted by me - Fluids, analgesia, and antiemetic given - Labs notable for No leukocytosis, normal hemoglobin. Metabolic panel similar to prior. - Imaging notable for moderate colonic constipation without other acute pathology to explain abdominal discomfort. -Constipation treatment ordered. Handed off pending administration and reassessment. Vital Signs: Vital signs: Vital Signs Temperature 97.4 F L 01/25/22 19:40 Pulse Rate 63 01/26/22 00:56 Respiratory Rate 18 01/26/22 00:56 Blood Pressure 154/76 01/25/22 23:30 Pulse Oximetry 100 01/26/22 00:56 Oxygen Delivery Ms thod 01/26/22 00:28 MDM - Abdominal Pain Medical Decision Making 76-year-old gentleman presenting with abdominal pain and constipation. Laboratory studies without significant abnormality. CT scan reviewed. Handed off to either Dr. Salinas treatment of constipation. 76-year-old male checked out to me by the previous physician at shift change. This gentleman has significant belly bloating and discomfort. He is afebrile. CBC is essentially normal. BMP is not remarkable. Liver enzymes are normal. CT of the abdomen shows constipation. It also happens to show a significantly distended bladder. The patient usually self caths at times for urinary ret ention. Reyna was placed, and 1000 mL of urine was put out. Patient was given a laxative as well as enema, with relief of the constipation here. He is otherwise stable. He refuses to go home with the Reyna catheter, noting that he will continue to self cath. He was advised to self cath at least 3 times a day for the next 5 days. Medical Records I reviewed the patient's medical records. Lab Data I reviewed the patient's lab results. : 01/25/22 20:38 01/25/22 20:38 Labs/Radiology: Radiology Impressions Abdomen/Pelvis CT 01/25/22 20:02 IMPRESSION: 1. Interval left nephrectomy since the previous exam. 2. Moderate retained feces throughout the colon. Laboratory Results WBC 4.2 10^3/uL (4.0-10.0) 01/25/22 20:38 RBC 4.24 10^6/uL (4.1-5.3) 01/25/22 20:38 Hgb 12.2 g/dL (11.7-16.6) 01/25/22 20:38 Hct 35.8 % (42.0-52.0) L 01/25/22 20:38 MCV 84.4 fl (80-94) 01/25/22 20:38 MCH 28.8 pg (28.0-34.0) 01/25/22 20:38 MCHC 34.1 g/dL (30.0-36.0) 01/25/22 20:38 RDW 14.6 % (12.1-15.1) 01/25/22 20:38 Plt Count 312 10^3/cmm (130-400) 01/25/22 20:38 MPV 9.4 fL (7.4-10.4) 01/25/22 20:38 Neut % (Auto) 53.1 % 01/25/22 20:38 Lymph % (Auto) 31.4 % 01/25/22 20:38 Mitchell % (Auto) 11.7 % 01/25/22 20:38 Eos % (Auto) 2.9 % 01/25/22 20:38 Baso % (Auto) 0.7 % 01/25/22 20:38 Neut # (Auto) 2.23 10^3/uL (1.8-7.7) 01/25/22 20:38 Lymph # (Auto) 1.3 10^3/uL (0.8-4.8) 01/25/22 20:38 Mitchell # (Auto) 0.5 10^3/uL (0.2-0.9) 01/25/22 20:38 Eos # (Auto) 0.1 10^3/uL (0.0-0.8) 01/25/22 20:38 Baso # (Auto) 0.0 10^3/uL (0.0-0.1) 01/25/22 20:38 Nucleated RBC % (auto) 0 % 01/25/22 20:38 Nucleated RBCs # 0.0 /100WBC 01/25/22 20:38 Sodium 134 mmol/L (136-145) L 01/25/22 20:38 Potassium 3.7 mmol/L (3.5-5.1) 01/25/22 20:38 Chloride 95 mmol/L (98-107) L 01/25/22 20:38 Carbon Dioxide 27 mmol/L (22-29) 01/25/22 20:38 Anion Gap 15.7 (5-19) 01/25/22 20:38 BUN 11 mg/dL (8-23) 01/25/22 20:38 Creatinine 0.8 mg/dL (0.7-1.2) 01/25/22 20:38 GFR Calculation Not Reportable 01/25/22 20:38 Glucose 85 mg/dL (65-115) 01/25/22 20:38 Calculated Osmolality 277 mOsm/kg (285-295) L 01/25/22 20:38 Lactate 0.9 mmol/L (0.5-2.2) 01/25/22 20:38 Calcium 10.3 mg/dL (8.5-10.5) 01/25/22 20:38 Total Bilirubin 0.6 mg/dL (0.15-1.2) 01/25/22 20:38 AST 27 U/L (0-40) 01/25/22 20:38 ALT 29 U/L (0-41) 01/25/22 20:38 Alkaline Phosphatase 79 U/L (40-130) 01/25/22 20:38 Total Protein 6.7 g/dL (6.6-8.7) 01/25/22 20:38 Albumin 4.4 g/dL (3.5-5.2) 01/25/22 20:38 Globulin 2.3 g/dL (1.3-4.6) 01/25/22 20:38 Urine Color Yellow (Yellow) 01/25/22 20:00 Urine Appearance Clear (CLEAR) 01/25/22 20:00 Urine pH 8 (5-7) H 01/25/22 20:00 Ur Specific [place] 1.005 (1.005-1.030) 01/25/22 20:00 Urine Protein Neg (Negative) 01/25/22 20:00 Urine Glucose (UA) Norm (Normal) 01/25/22 20:00 Urine Ketones Negative (Negative) 01/25/22 20:00 Urine Blood Neg (Negative) 01/25/22 20:00 Urine Nitrate Negative (Negative) 01/25/22 20:00 Urine Bilirubin Neg (Negative) 01/25/22 20:00 Prot Sulfosalicylic Acd Negative (Negative) 01/25/22 20:00 Urine Urobilinogen Neg mg/dL (Negative) 01/25/22 20:00 Ur Leukocyte Esterase Negative (Negative) 01/25/22 20:00 Discharge Plan Discharge Patient Disposition: Home Clinical Impression: Constipation, Abdominal pain, Dehydration, mild, Acute on chronic urinary retention Condition: Stable Prescriptions: New Miralax 17 gram powder in packet 17 g PO BID Qty: 30 0RF ondansetron 4 mg tablet,disintegrating 4 mg PO Q8H PRN (Reason: nausea and vomiting) Qty: 15 0RF lactulose 10 gram/15 mL solution 10 g PO BID Qty: 237 0RF Discontinued polyethylene glycol 3350 [Miralax] 17 gram/dose powder 17 g PO PRN No Action clopidogrel [Plavix] 75 mg tablet 75 mg PO DAILY zinc 50 mg tablet 50 mg PO DAILY magnesium 250 mg tablet 400 mg PO DAILY cholecalciferol (vitamin D3) 10 mcg (400 unit) capsule 10 mcg PO DAILY docusate sodium [Stool Softener] 100 mg capsule 100 mg PO DAILY psyllium husk [Metamucil] 0.52 gram capsule 0.52 g PO PRN losartan-hydrochlorothiazide 50-12.5 mg tablet 1 tab PO DAILY levothyroxine 150 mcg capsule 150 mcg PO DAILY amlodipine 10 mg tablet 10 mg PO DAILY doxazosin 8 mg tablet 8 mg PO DAILY pravastatin 20 mg tablet 20 mg PO DAILY finasteride 5 mg tablet 5 mg PO DAILY omega-3 fatty acids [Fish Oil Concentrate] 1,000 mg capsule 1,000 mg PO DAILY Centrum Silver 0.4-300-250 mg-mcg-mcg tablet 1 tab PO DAILY aspirin [Adult Low Dose Aspirin] 81 mg tablet,delayed release (DR/EC) 81 mg PO DAILY vitamin B complex [B Complex-Vitamin B12] Tablet 1 tab PO DAILY hydrocodone-acetaminophen 5-325 mg tablet 1 tab PO Q8H PRN (Reason: pain) Qty: 12 0RF Discharge Orders: Discharge ED (Routine); Ordered 01/26/22 Ordered By: Gonzalo Salinas Referrals: Zeeshan Dos Santos MD [Primary Care Provider] - 1-3 days Discharge Diet: Advance as tolerated and Clear Liquid Discharge Activity: Increase activity as tolerated Patient Instructions: Constipation (ED), Abdominal Pain (ED), Opioid Safety Activity Restrictions/Additional Instructions: Thank you for visiting the emergency department. You were seen evaluated for abdominal pain. The most likely cause of your symptoms is constipation. We are pleased that you had improvement with treatment in the emergency department. Please return to the emergency department for worsening symptoms, fevers, severe abdominal pain, or anything else that you are concerned about and feel needs emergency department evaluation. Treat constipation with lactulose until your bowel movements are soft and regular. Catheterize yourself 3 times a day for the next 5 days and then as needed for any urinary retention. Coding Level of Care Code ED Linseed Cake Trimmer for Chg Fwd Exam Comprehensive Documented by User: Gonzalo Salinas, 01/26/22 02:02 HPI - Abdominal Pain General: Chief Complaint: Abdominal Pain Stated Complaint: Dr. Dos Santos sent for abd pain Time Seen by Provider: 01/25/22 19:45 PFSH ED PFSH: Medical History BPH loc w urin obs/LUTS Gross hematuria H/O mumps orchitis Left inguinal hernia Left renal mass Male erectile dysfunction Penile pain Prostate cancer screening Surgical History H/O cervical spine surgery History of back surgery S/P hernia surgery S/P surgical removal of pilonidal cyst S/P tonsillectomy Family History Mother , 64 Cancer Father , 51 CAD (coronary artery disease) Social History Smoking and tobacco status: former smoker Alcohol intake: never Marital status: Current occupational status: retired History of recent travel: No Course Vital Signs: Vital signs: Vital Signs Temperature 97.4 F L 01/25/22 19:40 Pulse Rate 63 01/26/22 00:56 Respiratory Rate 18 01/26/22 00:56 Blood Pressure 154/76 01/25/22 23:30 Pulse Oximetry 100 01/26/22 00:56 Oxygen Delivery Ms thod 01/26/22 00:28 MDM - Abdominal Pain Medical Decision Making 76-year-old male checked out to me by the previous physician at shift change. This gentleman has significant belly bloating and discomfort. He is afebrile. CBC is essentially normal. BMP is not remarkable. Liver enzymes are normal. CT of the abdomen shows constipation. It also happens to show a significantly distended bladder. The patient usually self caths at times for urinary retention. Reyna was placed, and 1000 mL of urine was put out. Patient was given a laxative as well as enema, with relief of the constipation here. He is otherwise stable. He refuses to go home with the Reyna catheter, noting that he will continue to self cath. He was advised to self cath at least 3 times a day for the next 5 days. Lab Data : 01/25/22 20:38 01/25/22 20:38 Labs/Radiology: Radiology Impressions Abdomen/Pelvis CT 01/25/22 20:02 IMPRESSION: 1. Interval left nephrectomy since the previous exam. 2. Moderate retained feces throughout the colon. Laboratory Results WBC 4.2 10^3/uL (4.0-10.0) 01/25/22 20:38 RBC 4.24 10^6/uL (4.1-5.3) 01/25/22 20:38 Hgb 12.2 g/dL (11.7-16.6) 01/25/22 20:38 Hct 35.8 % (42.0-52.0) L 01/25/22 20:38 MCV 84.4 fl (80-94) 01/25/22 20:38 MCH 28.8 pg (28.0-34.0) 01/25/22 20: MCHC 34.1 g/dL (30.0-36.0) 01/25/22 20:38 RDW 14.6 % (12.1-15.1) 01/25/22 20:38 Plt Count 312 10^3/cmm (130-400) 01/25/22: MPV 9.4 fL (7.4-10.4) 01/25/22 20:38 Neut % (Auto) 53.1 % 01/25/22 20: Lymph % (Auto) 31.4 % 01/25/22 20:38 Mitchell % (Auto) 11.7 % 01/25/22 20:38 Eos % (Auto) 2.9 % 01/25/22 20:38 Baso % (Auto) 0.7 % 01/25/22: Neut # (Auto) 2.23 10^3/uL (1.8-7.7) 01/25/22 20:38 Lymph # (Auto) 1.3 10^3/uL (0.8-4.8) 01/25/22 20:38 Mitchell # (Auto) 0.5 10^3/uL (0.2-0.9) 01/25/22 20:38 Eos # (Auto) 0.1 10^3/uL (0.0-0.8) 01/25/22 20:38 Baso # (Auto) 0.0 10^3/uL (0.0-0.1) 01/25/22: Nucleated RBC % (auto) 0 % 01/25/22: Nucleated RBCs # 0.0 /100WBC 01/25/22 20:38 Sodium 134 mmol/L (136-145) L 01/25/22 20:38 Potassium 3.7 mmol/L (3.5-5.1) 01/25/22 20:38 Chloride 95 mmol/L (98-107) L 01/25/22 20:38 Carbon Dioxide 27 mmol/L (22-29) 01/25/22 20:38 Anion Gap 15.7 (5-19) 01/25/22 20:38 BUN 11 mg/dL (8-23) 01/25/22 20:38 Creatinine 0.8 mg/dL (0.7-1.2) 01/25/22 20:38 GFR Calculation Not Reportable 01/25/22 20:38 Glucose 85 mg/dL (65-115) 01/25/22 20:38 Calculated Osmolality 277 mOsm/kg (285-295) L 01/25/22 20:38 Lactate 0.9 mmol/L (0.5-2.2) 01/25/22 20:38 Calcium 10.3 mg/dL (8.5-10.5) 01/25/22 20:38 Total Bilirubin 0.6 mg/dL (0.15-1.2) 01/25/22 20:38 AST 27 U/L (0-40) 01/25/22 20:38 ALT 29 U/L (0-41) 01/25/22 20:38 Alkaline Phosphatase 79 U/L (40-130) 01/25/22 20:38 Total Protein 6.7 g/dL (6.6-8.7) 01/25/22 20:38 Albumin 4.4 g/dL (3.5-5.2) 01/25/22 20:38 Globulin 2.3 g/dL (1.3-4.6) 01/25/22 20:38 Urine Color Yellow (Yellow) 01/25/22 20:00 Urine Appearance Clear (CLEAR) 01/25/22 20:00 Urine pH 8 (5-7) H 01/25/22 20:00 Ur Specific [place] 1.005 (1.005-1.030) 01/25/22 20:00 Urine Protein Neg (Negative) 01/25/22 20:00 Urine Glucose (UA) Norm (Normal) 01/25/22 20:00 Urine Ketones Negative (Negative) 01/25/22 20:00 Urine Blood Neg (Negative) 01/25/22 20:00 Urine Nitrate Negative (Negative) 01/25/22 20:00 Urine Bilirubin Neg (Negative) 01/25/22 20:00 Prot Sulfosalicylic Acd Negative (Negative) 01/25/22 20:00 Urine Urobilinogen Neg mg/dL (Negative) 01/25/22 20:00 Ur Leukocyte Esterase Negative (Negative) 01/25/22 20:00 Discharge Plan Discharge Patient Disposition: Home Clinical Impression: Constipation, Abdominal pain, Dehydration, mild, Acute on chronic urinary retention Condition: Stable Prescriptions: New Miralax 17 gram powder in packet 17 g PO BID Qty: 30 0RF ondansetron 4 mg tablet,disintegrating 4 mg PO Q8H PRN (Reason: nausea and vomiting) Qty: 15 0RF lactulose 10 gram/15 mL solution 10 g PO BID Qty: 237 0RF Discontinued polyethylene glycol 3350 [Miralax] 17 gram/dose powder 17 g PO PRN No Action clopidogrel [Plavix] 75 mg tablet 75 mg PO DAILY zinc 50 mg tablet 50 mg PO DAILY magnesium 250 mg tablet 400 mg PO DAILY cholecalciferol (vitamin D3) 10 mcg (400 unit) capsule 10 mcg PO DAILY docusate sodium [Stool Softener] 100 mg capsule 100 mg PO DAILY psyllium husk [Metamucil] 0.52 gram capsule 0.52 g PO PRN losartan-hydrochlorothiazide 50-12.5 mg tablet 1 tab PO DAILY levothyroxine 150 mcg capsule 150 mcg PO DAILY amlodipine 10 mg tablet 10 mg PO DAILY doxazosin 8 mg tablet 8 mg PO DAILY pravastatin 20 mg tablet 20 mg PO DAILY finasteride 5 mg tablet 5 mg PO DAILY omega-3 fatty acids [Fish Oil Concentrate] 1,000 mg capsule 1,000 mg PO DAILY Centrum Silver 0.4-300-250 mg-mcg-mcg tablet 1 tab PO DAILY aspirin [Adult Low Dose Aspirin] 81 mg tablet,delayed release (DR/EC) 81 mg PO DAILY vitamin B complex [B Complex-Vitamin B12] Tablet 1 tab PO DAILY hydrocodone-acetaminophen 5-325 mg tablet 1 tab PO Q8H PRN (Reason: pain) Qty: 12 0RF Discharge Orders: Discharge ED (Routine); Ordered 01/26/22 Ordered By: Gonzalo Salinas Referrals: Zeeshan Dos Santos MD [Primary Care Provider] - 1-3 days Discharge Diet: Advance as tolerated and Clear Liquid Discharge Activity: Increase activity as tolerated Patient Instructions: Constipation (ED), Abdominal Pain (ED), Opioid Safety Activity Restrictions/Additional Instructions: Thank you for visiting the emergency department. You were seen evaluated for abdominal pain. The most likely cause of your symptoms is constipation. We are pleased that you had improvement with treatment in the emergency department. Please return to the emergency department for worsening symptoms, fevers, severe abdominal pain, or anything else that you are concerned about and feel needs emergency department evaluation. Treat constipation with lactulose until your bowel movements are soft and regular. Catheterize yourself 3 times a day for the next 5 days and then as needed for any urinary retention. Coding Level of Care Code ED Linseed Cake Trimmer for Sae Fwd Exam Comprehensive
--- NOTE | 2022-01-25 20:02 | CTR_ITS ---
PROCEDURE INFORMATION: Exam: CT Abdomen And Pelvis With Contrast Exam date and time: 01/25/2022 9:23 PM Age: 76 years old Clinical indication: Abdominal pain; Generalized; Prior surgery; Surgery type: Nephrectomy. Hernia repair. Coronary stent. Patient HX: C/O abd pain with constipation. History of renal cancer. ; Additional info: Abd pain, constipation TECHNIQUE: Imaging protocol: Computed tomography of the abdomen and pelvis with contrast. Radiation optimization: All CT scans at this facility use at least one of these dose optimization techniques: automated exposure control; mA and/or kV adjustment per patient size (includes targeted exams where dose is matched to clinical indication); or iterative reconstruction. Contrast material: OMNI 350; Contrast volume: 80 ml; Contrast route: INTRAVENOUS (IV); COMPARISON: CT abdomen pelvis wo/w [id number] 06/21/2021 12:19 PM RADIATION DOSE METRICS: Total DLP (mGy-cm): 542.73 FINDINGS: Liver: Normal. No mass. Gallbladder and bile ducts: Normal. No calcified stones. No ductal dilation. Pancreas: Normal. No ductal dilation. Spleen: Stable calcified splenic granulomas. Adrenal glands: Normal. No mass. Kidneys and ureters: Interval left nephrectomy since the previous exam. Stomach and bowel: Moderate retained feces throughout the colon. Appendix: No evidence of appendicitis. Intraperitoneal space: Unremarkable. No free air. No significant fluid collection. Vasculature: Calcification of the abdominal aorta and/or iliac arteries consistent with atherosclerotic vessel disease. Lymph nodes: Unremarkable. No enlarged lymph nodes. Urinary bladder: Unremarkable as visualized. Reproductive: Nonspecific prostate calcifications. Bones/joints: Unremarkable. No acute fracture. Soft tissues: Unremarkable. CT/CT abdomen pelvis w con* [id number] IMPRESSION: 1. Interval left nephrectomy since the previous exam. 2. Moderate retained feces throughout the colon.
[2022-01-25 20:34] VITALS: RESP 15
[2022-01-25] MEDS: morphine 4 mg/mL SDV 1 mL IVP (20:34)
[2022-01-25 20:47] LABS: Basophils % 0.7 %; Eosinophils # 0.1 10^3/uL (0.0-0.8); Eosinophils % 2.9 %; Hematocrit 35.8 % (42.0-52.0); Hemoglobin 12.2 g/dL (11.7-16.6); Lymphocytes # 1.3 10^3/uL (0.8-4.8); Lymphocytes % 31.4 %; Mean Corpuscular HGB Conc 34.1 g/dL (30.0-36.0); Mean Corpuscular Hemoglobin 28.8 pg (28.0-34.0); Mean Corpuscular Volume 84.4 fl (80-94); Mean Platelet Volume 9.4 fL (7.4-10.4); Monocytes # 0.5 10^3/uL (0.2-0.9); Monocytes % 11.7 %; Neutrophils # 2.23 10^3/uL (1.8-7.7); Neutrophils % 53.1 %; Nucleated Red Blood Cells % 0 %; Platelet Count 312 10^3/cmm (130-400); Red Blood Count 4.24 10^6/uL (4.1-5.3); Red Cell Distribution Width 14.6 % (12.1-15.1); White Blood Count 4.2 10^3/uL (4.0-10.0)
[2022-01-25 21:00] VITALS: BP 142/84; PULSE 68; RESP 19; O2SAT 98
[2022-01-25 21:12] LABS: Alanine Aminotransferase 29 U/L (0-41); Albumin Level 4.4 g/dL (3.5-5.2); Alkaline Phosphatase 79 U/L (40-130); Anion Gap 15.7 (5-19); Aspartate Amino Transferase 27 U/L (0-40); Blood Urea Nitrogen 11 mg/dL (8-23); Calcium 10.3 mg/dL (8.5-10.5); Carbon Dioxide 27 mmol/L (22-29); Chloride 95 mmol/L (98-107); Globulin 2.3 g/dL (1.3-4.6); Glucose 85 mg/dL (65-115); Lactate (Lactic Acid level) 0.9 mmol/L (0.5-2.2); Osmolality Calculated 277 mOsm/kg (285-295); Potassium 3.7 mmol/L (3.5-5.1); Sodium 134 mmol/L (136-145); Total Bilirubin 0.6 mg/dL (0.15-1.2); Total Protein 6.7 g/dL (6.6-8.7)
[2022-01-25] MEDS: iohexol 350 mg/mL 100 mL Btl IV (21:31)
[2022-01-25 22:00] VITALS: BP 146/77; PULSE 67; RESP 19; O2SAT 99
[2022-01-25] MEDS: lactulose oral liq 20 gm/30 mL UDC 30 GM PO (22:07)
[2022-01-25 22:08] LABS: Add Urine Microscopic? NO; Charge for UA Resulting for Rev
[2022-01-25] MEDS: ondansetron 2 mg/ML SDV 2 mL 4 MG IVP (22:08)
[2022-01-25] MEDS: mineral oil 30 mL UDC PO (22:08)
[2022-01-25] MEDS: magnesium hydroxide 30 mL UDC PO (22:08)
[2022-01-25] MEDS: Fleet Enema 133 mL Enema PR (22:08)
[2022-01-25 22:17] LABS: Specific Gravity, Urine 1.005 (1.005-1.030); Urine Appearance Clear (CLEAR); Urine Color Yellow (Yellow); pH Urine 8 (5-7)
[2022-01-25 22:18] LABS: Bilirubin Urine Neg (Negative); Blood Urine Neg (Negative); Glucose Urine UA Norm (Normal); Ketones Urine Negative (Negative); Leukocyte Esterase Urine Negative (Negative); Nitrate Urine Negative (Negative); Protein Urine Neg (Negative); Sulfosalicylic Acid Urine Negative (Negative); Urobilinogen Urine Neg (Negative)
[2022-01-25] MEDS: sodium chloride 0.9% 1,000 ML 999 ML IV (22:23)
--- NOTE | 2022-01-25 23:11 | PC.NURSE ---
assumed care of patient at this time.
[2022-01-25 23:30] VITALS: BP 154/76; PULSE 72; RESP 26; O2SAT 98
--- NOTE | 2022-01-25 23:38 | PC.NURSE ---
Patient here with c/o abdominal pain, patient reports he has experienced this in the past and if he is able to get his bowels to move then once he eats the same thing will happen again, he is concerned that he hasn't been able to find out what is causing his problem. Patient given bowel regimen per orders and has been up to the [facility] with liquid results
--- NOTE | 2022-01-25 23:44 | PC.NURSE ---
patient attempting to urinate at this time for post void bladder scan
--- NOTE | 2022-01-25 23:50 | PC.NURSE ---
patient states that he does not want indwelling catheter and wants to self cath at home. patient notified that due to the size of his bladder and his presenting s/s, he needs to be catheterized to drain the current volume, and then i will notify dr da silva to come discuss outpatient plan of care. patient agreeable. patient educated that typical plan of care is to place an indwelling catheter, with use of drainage bag and leg bag, for new onset retention or when self cath at home is unsuccessful, and then the patient follow up outpatient with their urologist. patient verbalized understanding.
--- NOTE | 2022-01-25 23:50 | PC.NURSE ---
unable to void at this time.
--- NOTE | 2022-01-26 | PC.NURSE ---
dr da islva notified that patient is requesting removal of catheter after draining bladder, and discussing continue use of self cath.
[2022-01-26 00:28] VITALS: PULSE 93; RESP 19; O2SAT 96
[2022-01-26 00:56] VITALS: PULSE 63; RESP 18; O2SAT 100
== END 2022-01-26 00:57 | disposition home or self-care (01) ==
PROVIDERS: Emergency Medicine; Emergency Provider Emergency Medicine; PCP Family Medicine
DX: K59.00 Constipation, unspecified (principal); E86.0 Dehydration; R33.8 Other retention of urine; Z79.02 Long term (current) use of antithrombotics/antiplatelets; Z79.82 Long term (current) use of aspirin; Z87.891 Personal history of nicotine dependence
CPT/HCPCS: 51702; 74177; 80053; 81003; 83605; 85025; 96374; 96375; 99285; J2270; J2405; J7030; Q9967

== ENCOUNTER 2023-06-02 16:53 | Emergency (ER) | payer MEDICARE, OTHER, SELFPAY ==
[2023-06-02 17:13] VITALS: BP 148/74; PULSE 67; RESP 16; TEMP 36.6; O2SAT 99; BMI 28.1
--- NOTE | 2023-06-02 17:22 | CTR_ITS ---
PROCEDURE INFORMATION: Exam: CT Head Without Contrast Exam date and time: 06/02/2023 7:14 PM Age: 77 years old Clinical indication: Injury or trauma; Fall; Blunt trauma (contusions or hematomas); Additional info: Hit left forehead TECHNIQUE: Imaging protocol: Computed tomography of the head without contrast. Radiation optimization: All CT scans at this facility use at least one of these dose optimization techniques: automated exposure control; mA and/or kV adjustment per patient size (includes targeted exams where dose is matched to clinical indication); or iterative reconstruction. COMPARISON: CR XR cervical spine 3V* [id number] 17/05/2019 15:19 RADIATION DOSE METRICS: Total DLP (mGy-cm): 2225 FINDINGS: Brain: Mild diffuse cortical volume loss. Very mild hypodensities in supratentorial periventricular and subcortical white matter, consistent with microangiopathy. No intracranial hemorrhage. Cerebral ventricles: No ventriculomegaly. Paranasal sinuses: Visualized sinuses are unremarkable. No fluid levels. Mastoid air cells: Mild right mastoid effusion. The left mastoid is clear. Bones/joints: Unremarkable. No acute fracture. Soft tissues: Unremarkable. Vasculature: No hyperdense artery. CT/CT head wo con* [id number] IMPRESSION: 1. No fracture or intracranial hemorrhage. 2. Mild right mastoid effusion.
[2023-06-02 18:05] VITALS: BP 162/80; PULSE 64; RESP 18; O2SAT 97
--- NOTE | 2023-06-02 19:28 | W.ED.FALL ---
HPI - Fall General: Chief Complaint: Fall Stated Complaint: fell and hit head Time Seen by Provider: 06/02/23 18:05 Source: patient Mode of arrival: ambulatory Limitations: no limitations History of Present Illness: 77-year-old male that states that he had tripped and hit his head on a door frame states this happened prior to arrival he is on Plavix states had a mild headache denies any loss conscious states that his PCP recommended getting a head CT did hit his left knee as well but Associated symptoms-after fall: Reports headache(s); Denies abdominal pain, chest pain or neck pain Review of Systems Const: Denies: fever(s), chills, body aches or change in appetite ENMT: Denies: throat pain or dental pain Card: Denies: chest pain Resp: Denies: dyspnea GI: Denies: abdominal pain, nausea, vomiting or diarrhea Musc: Denies: neck pain or back pain Skin/Breast: Denies: rash Neuro: Reports: headache(s) PFSH ED PFSH: Medical History Left renal mass Gross hematuria H/O mumps orchitis Left inguinal hernia BPH loc w urin obs/LUTS Prostate cancer screening Penile pain Male erectile dysfunction Surgical History S/P tonsillectomy S/P hernia surgery S/P surgical removal of pilonidal cyst History of back surgery H/O cervical spine surgery Family History Mother , 64 Cancer Father , 51 CAD (coronary artery disease) Social History Smoking and tobacco/nicotine status: former use of tobacco/nicotine Alcohol intake: never Substance/Drug Use: never Marital status: Current occupational status: retired Physical Exam Const: COMMON NORMALS: no acute distress, patient oriented x3 and healthy appearing HENMT: COMMON NORMALS: normocephalic HEAD & SCALP: normocephalic OTHER: abrasion to left forehead Eye: COMMON NORMALS: Equal, round and reactive pupils present and EOMs intact bilaterally PUPIL: Yes Equal, round and reactive pupils present Neck/C-Spine: COMMON NORMALS: full ROM Chest: COMMONS NORMALS: normal inspection of the chest Resp: COMMON NORMALS: normal respiratory effort Cardio: COMMON NORMALS: regular rate, regular rhythm and No murmurs present (Cardio) RATE: regular rate RHYTHM: regular rhythm Extremity: COMMON NORMALS: normal to inspection and full ROM Neuro: COMMON NORMALS: patient oriented x3, moves all extremities and no focal motor deficits Psych: COMMON NORMALS: mental status grossly normal, Normal thought process present and cooperative THOUGHT PROCESS: Normal thought process present Skin: COMMON NORMALS: no rashes or lesions noted and no wounds GENERAL SKIN EXAM: no rashes or lesions noted Course Vital Signs: Vital signs: Vital Signs Temperature 97.9 F 06/02/23 17:13 Pulse Rate 64 06/02/23 18:05 Respiratory Rate 18 06/02/23 18:05 Blood Pressure 162/80 06/02/23 18:05 Pulse Oximetry 97 06/02/23 18:05 Oxygen Delivery Me thod Room Air 06/02/23 18:05 MDM - Fall Medical Decision Making Patient presents here with a closed head injury from a fall head CT here is a normal he is well-appearing here he is stable for discharge she is follow-up with PCP and return if worsening he understands agrees to plan. Medical Records I reviewed the patient's medical records. All radiology interpretation(s) finalized by discharge Discharge Plan Discharge Patient Disposition: Home Clinical Impression: Closed head injury Qualifiers: Encounter type: initial encounter Qualified Code(s): S09.90XA - Unspecified injury of head, initial encounter Condition: Stable Prescriptions: No Action clopidogrel [Plavix] 75 mg tablet 75 mg PO DAILY zinc 50 mg tablet 50 mg PO DAILY magnesium 250 mg tablet 400 mg PO DAILY cholecalciferol (vitamin D3) 10 mcg (400 unit) capsule 10 mcg PO DAILY docusate sodium [Stool Softener] 100 mg capsule 100 mg PO DAILY psyllium husk [Metamucil] 0.52 gram capsule 0.52 g PO PRN losartan-hydrochlorothiazide 50-12.5 mg tablet 1 tab PO DAILY levothyroxine 150 mcg capsule 150 mcg PO DAILY amlodipine 10 mg tablet 10 mg PO DAILY doxazosin 8 mg tablet 8 mg PO DAILY pravastatin 20 mg tablet 20 mg PO DAILY finasteride 5 mg tablet 5 mg PO DAILY omega-3 fatty acids [Fish Oil Concentrate] 1,000 mg capsule 1,000 mg PO DAILY Centrum Silver 0.4-300-250 mg-mcg-mcg tablet 1 tab PO DAILY aspirin [Adult Low Dose Aspirin] 81 mg tablet,delayed release (DR/EC) 81 mg PO DAILY vitamin B complex [B Complex-Vitamin B12] Tablet 1 tab PO DAILY hydrocodone-acetaminophen 5-325 mg tablet 1 tab PO Q8H PRN (Reason: pain) Qty: 12 0RF Miralax 17 gram powder in packet 17 g PO BID Qty: 30 0RF ondansetron 4 mg tablet,disintegrating 4 mg PO Q8H PRN (Reason: nausea and vomiting) Qty: 15 0RF lactulose 10 gram/15 mL solution 10 g PO BID Qty: 237 0RF Discharge Orders: Discharge ED (Routine); Ordered 06/02/23 Ordered By: Yamila Burkett Referrals: Zeeshan Dos Santos MD [Primary Care Provider] - 1-3 days Discharge Diet: Advance as tolerated Discharge Activity: Resume usual activity Patient Instructions: Head Injury (ED) Coding Level of Care Code ED Administrative Staff Supervisor for Sae Rosario
[2023-06-02 20:12] VITALS: BP 162/80; PULSE 64; RESP 18; TEMP 36.6; O2SAT 97
== END 2023-06-02 20:12 | disposition home or self-care (01) ==
PROVIDERS: Emergency Provider Emergency Medicine; PCP Family Medicine
DX: S00.81XA Abrasion of other part of head, initial encounter (principal); Z79.02 Long term (current) use of antithrombotics/antiplatelets; Z79.82 Long term (current) use of aspirin; Z87.891 Personal history of nicotine dependence; W01.198A Fall on same level from slipping, tripping and stumbling with subsequent striking against other object, initial encounter
CPT/HCPCS: 70450; 99284